=== PATIENT | female | born 1985 | race Caucasian/White ===

== ENCOUNTER → 2017-01-21 | Outpatient (CLI) | payer BC ==
--- NOTE | 2017-01-21 16:00 | US ---
Examination: Greater than 14 weeks transabdominal ultrasound with color Doppler and M-mode evaluatio n. HISTORY: Screening FINDINGS: LMP is 09/06/2016 EVALUATION: Posterior placenta with a breech lie and grade 1. Visually amniotic fluid is withi n normal limits. Three-vessel cord is seen. Ventricles are within normal limits. Four chamber heart is noted. Heart rate is 150 beats per minute. BIOMETRY AND GESTATIONAL AGE: Biparietal diameter 4.3 cm. The abdominal circumference measures 15.9 cm. The femoral length is 2.8 cm with head circumference of 15.9 cm. Gestational age is 18 weeks and 6 days. The expected date of delivery is approximately 06/18/2017. Fetus weight is 271 grams. Overall the fetus is within the 19th percentile. Other detail anatomy summarized into PACs sheet after the images. No anatomical anomalies. IMPRESSION: Single active IU with breech fetus. Posterior placenta with grade 1, no placenta previa. N o anomalies are seen. Amniotic fluid appears within normal limits.
== END ==
LOC: MW.US 12:58
PROVIDERS: ATTEND Obstetrics & Gynecology
DX: Z36 Encounter for antenatal screening of mother (principal); Z3A.18 18 weeks gestation of pregnancy
CPT/HCPCS: 36415; 76805; 76805-26; 82105; 82677; 84702; 86336; 87491; 87591

== ENCOUNTER → 2017-02-12 | Outpatient (CLI) | payer BC | LOC: MW.CHOBGYN 08:02 | PROVIDERS: ATTEND Obstetrics & Gynecology | DX: Z34.90 Encounter for supervision of normal pregnancy, unspecified, unspecified trimester (principal); N89.8 Other specified noninflammatory disorders of vagina; N94.9 Unspecified condition associated with female genital organs and menstrual cycle | CPT/HCPCS: 81003; 87480; 87510; 87660 ==